=== PATIENT | male | born 2000 | race Hispanic/Latino ===

== ENCOUNTER 2019-02-06 02:54 | Emergency (ER) | payer OTHER ==
[2019-02-06 03:34] VITALS: BMI 21.2
[2019-02-06] MEDS ORDERED: Oxycodone/Acetaminophen 5/325 mg Tab PO STA (04:21)
[2019-02-06] MEDS ORDERED: Tmp-Smz 800 mg-160 mg DS Tab PO STA (04:21)
--- NOTE | 2019-02-06 04:28 | ED PDOC ---
Upper Extremity Pain/Injury Time Seen by Provider: 02/06/19 04:15 Chief Complaint (Nursing): Finger,Hand,&Wrist Chief Complaint (Provider): Finger,Hand,&Wrist History Per: Patient History/Exam Limitations: no limitations Onset/Duration Of Symptoms: Days (x 4) Current Symptoms Are (Timing): Still Present Quality: "Pain" Severity: Moderate Exacerbating Factor(s): Movement Additional Complaint(s): 18 year old male with worsening pain to the right index finger for four days. Initially, he noticed what appeared to be an insect bite to the anterior fat pad of index finger. Over the next few days it continued to swell with redness and pain. Patient was seen at the urgent care yesterday and given Amoxicillin. Pain is now so severe that he cannot sleep. Offers no other complaints. PMD: none provided Past Medical History Reviewed: Historical Data, Nursing Documentation, Vital Signs Vital Signs: Last Vital Signs Temp 98.3 F 02/06/19 03:33 Pulse 60 02/06/19 03:33 Resp 18 02/06/19 03:33 BP 123/71 02/06/19 03:33 Pulse Ox 98 02/06/19 03:33 - Medical History PMH: No Chronic Diseases - Surgical History Surgical History: No Surg Hx - Family History Family History: States: Unknown Family Hx - Home Medications Home Medications: Ambulatory Orders Medication Instructions Recorded Ibuprofen [Motrin] 600 mg PO Q6H PRN #30 tab 02/06/19 Sulfamethoxazole/Trimethoprim 1 each PO BID #20 tablet 02/06/19 [Bactrim Ds Tablet] - Allergies Allergies/Adverse Reactions: Allergies Allergy/AdvReac Type Severity Reaction Status Date / Time No Known Allergies Allergy Verified 02/06/19 03:33 Review of Systems ROS Statement: Except As Marked, All Systems Reviewed And Found Negative Musculoskeletal: Positive for: Other (swelling and redness to distal index figner) Physical Exam - Reviewed Nursing Documentation Reviewed: Yes Vital Signs Reviewed: Yes - Physical Exam Appears: Positive for: No Acute Distress Head Exam: Positive for: ATRAUMATIC, NORMAL INSPECTION, NORMOCEPHALIC Skin: Positive for: Normal Color, Warm, Dry Eye Exam: Positive for: EOMI, Normal appearance, PERRL Cardiovascular/Chest: Positive for: Regular Rate, Rhythm. Negative for: Murmur Respiratory: Positive for: Normal Breath Sounds. Negative for: Respiratory Distress Extremity: Positive for: Normal ROM (full ROM of all digits), Swelling (swelling to the distal tip over anterior first digit). Negative for: Other (erythema, induration, fluctuance or streaking) Neurological/Psych: Positive for: Awake, Alert, Normal Tone, Oriented (x 3). Negative for: Motor/Sensory Deficits - ECG O2 Sat by Pulse Oximetry: 98 (RA) Pulse Ox Interpretation: Normal Medical Decision Making Medical Decision Makin:18 MDM: swelling and pain to the distal index finger; most likely cellulitis Vaccinations are up to date, no Tetanus needed. First dose of Bactrim, Percocet for pain. X-ray of finger. 04:55 No foreign body or other abnormality seen on x-ray Patient will be discharged on Bactrim and Motrin for pain. Scribe Attestation: Documented by Mari Apodaca, acting as a scribe Sravan Jaeger MD Provider Scribe Attestation: All medical record entries made by the Scribe were at my direction and personally dictated by me. I have reviewed the chart and agree that the record accurately reflects my personal performance of the history, physical exam, medical decision making, and the department course for this patient. I have also personally directed, reviewed, and agree with the discharge instructions and disposition. Disposition - Clinical Impression Clinical Impression: Cellulitis and abscess of finger, unspecified, Insect bite - Patient ED Disposition Is Patient to be Admitted: No - Disposition Disposition: Routine/Home Disposition Time: :55 Condition: IMPROVED Additional Instructions: Follow up with primary medical doctor in 2 to 4 days. Take antibiotics as prescribed. Return to the emergency department if swelling, pain, redness worsen or if other new symptoms develop. Prescriptions: Sulfamethoxazole/Trimethoprim [Bactrim Ds Tablet] 1 each PO BID #20 tablet Instructions: Insect Bites and Stings (DC), Cellulitis (Skin Infection), Adult (DC) Forms: [facility] (Tajik), [facility] ED School/Work Excuse Print Language: NIGERIAN
[2019-02-06] MEDS ORDERED: Tmp-Smz 800 mg-160 mg DS Tab ONE (04:42)
[2019-02-06 05:04] VITALS: BP 121/71; PULSE 67; RESP 16; TEMP 98.5
--- NOTE | 2019-02-06 11:44 | RAD ---
Date of service: 02/06/2019 PROCEDURE: Right Index finger radiographs. HISTORY: right hand swelling, poss infection COMPARISON: None. TECHNIQUE: AP radiograph of the right hand, as well as spot oblique and lateral images of index finger were obtained. 3 views obtained. FINDINGS: RIGHT INDEX FINGER: Normal right index finger, without fracture or focal lesion. Remainder of the right hand (as seen on the AP view) grossly intact. A tiny sesamoid bone hamm aspect 2nd DIP joint. Apparent benign-appearing bone island over 4th proximal middle phalanx JOINTS: Normal. SOFT TISSUES: Normal. OTHER FINDINGS: None. IMPRESSION: No fracture or dislocation or lytic lesion or radiopaque foreign body noted. No subcutaneous gaseous emphysema noted. No periosteal reaction seen
[2019-02-10 19:28] VITALS: O2SAT 98
== END 2019-02-06 05:04 | disposition home or self-care (01) ==
LOC: H.ER 02:54
DX: L03.011 Cellulitis of right finger (principal)

== ENCOUNTER 2019-02-06 10:27 | Emergency (ER) | payer OTHER ==
[2019-02-06 10:34] VITALS: BP 119/75; RESP 16; O2SAT 96; BMI 21.8
--- NOTE | 2019-02-06 12:22 | ED PDOC ---
Upper Extremity Pain/Injury Time Seen by Provider: 02/06/19 12:10 Chief Complaint (Nursing): Finger,Hand,&Wrist Chief Complaint (Provider): finger pain History Per: Patient History/Exam Limitations: no limitations Onset/Duration Of Symptoms: Days Current Symptoms Are (Timing): Still Present Quality: Pressure, "Pain" Severity: Moderate Pain Scale Rating Of: 7 Exacerbating Factor(s): Movement Additional History Per: Patient Additional Complaint(s): 18 y/o male with no medical hx presents to the ED with pain and swelling to the tip of the right index finger since Monday. Pt reports he thinks it might be from a "spider" pt reports he saw and "white" spot to finger tip on monday and monday area was 'black dot" pt was seen last night in the ed for same and given one dose of Bactrim, sent home with prescription to continue with bactrim at home. He states this am the pain was severe and was seen in the urgent care today where finger was I'D and instructed to follow up if symptoms worsened which prompted pt to come to ed after urgent care visit. pt has not take meds for pain management, last dose of bactrim was at 3am. Pt denies fever, increase redness or swelling to finger. Past Medical History Vital Signs: Last Vital Signs Temp 97.6 F 02/06/19 10:33 Pulse 66 02/06/19 10:33 Resp 16 02/06/19 10:33 BP 119/75 02/06/19 10:33 Pulse Ox 96 02/06/19 10:33 TRISTAN Report Viewed: No - Medical History PMH: No Chronic Diseases Denies: Chronic Kidney Disease - Surgical History Surgical History: No Surg Hx - Family History Family History: States: Unknown Family Hx - Living Arrangements Living Arrangements: With Family - Social History Alcohol: None Drugs: Denies - Home Medications Home Medications: Ambulatory Orders Medication Instructions Recorded Ibuprofen [Motrin] 600 mg PO Q6H PRN #30 tab 02/06/19 Sulfamethoxazole/Trimethoprim 1 each PO BID #20 tablet 02/06/19 [Bactrim Ds Tablet] - Allergies Allergies/Adverse Reactions: Allergies Allergy/AdvReac Type Severity Reaction Status Date / Time No Known Allergies Allergy Verified 02/06/19 03:33 Review of Systems ROS Statement: Except As Marked, All Systems Reviewed And Found Negative (right 2nd finger, finger tip pad) Constitutional: Negative for: Fever, Chills, Sweats, Weakness, Malaise Eyes: Negative for: Pain, Vision Change, Conjunctivae Inflammation, Eyelid Inflammation, Redness Cardiovascular: Negative for: Chest Pain, Palpitations Respiratory: Negative for: Cough, Shortness of Breath, SOB with Exertion, Wheezing Gastrointestinal: Negative for: Nausea, Vomiting, Abdominal Pain, Diarrhea Musculoskeletal: Positive for: Hand Pain Neurological: Negative for: Weakness, Confusion, Dizziness Physical Exam - Reviewed Nursing Documentation Reviewed: Yes Vital Signs Reviewed: Yes - Physical Exam Appears: Positive for: Well, Non-toxic, No Acute Distress Head Exam: Positive for: ATRAUMATIC, NORMAL INSPECTION, NORMOCEPHALIC Skin: Positive for: Normal Color, Warm, DRY Eye Exam: Positive for: EOMI, Normal appearance, PERRL ENT: Positive for: Normal ENT Inspection Neck: Positive for: Normal, Painless ROM Cardiovascular/Chest: Positive for: Regular Rate, Rhythm Respiratory: Positive for: CNT, Normal Breath Sounds Gastrointestinal/Abdominal: Positive for: Normal Exam, Soft Back: Positive for: Normal Inspection Extremity: Positive for: Tenderness (right second digit redness, swelling and pain between finger tip pad and DIP. nail bed normal, neg for paronychia. neg for sign of necrosis. extensor tendon function is intact.), Capillary Refill (<2 secs refill ), Swelling (finger tip pad ) Neurological/Psych: Positive for: Awake, Alert, Normal Tone, Oriented - ECG O2 Sat by Pulse Oximetry: 96 - Progress ED Course And Treament: Motrin 600mg PO x1 Right hand examined in its entirety. Noted finger has betadine from I'D. Patient given motrin 600mg PO. Pt instructed to fill prescription for Bactrim and take another dose as scheduled. Educated on non-pharmacological therapies such as warm water soaks and maintain elevated while resting, to keep finger clean. Impression: Nell ferreira, rx given for motrin 600mg PO as needed for pain. advised pt to return to ED in 2 days for wound check. Pt verbalize understanding instructions. pt stable for D/C home, pt agrees with plan. Disposition - Clinical Impression Clinical Impression: Cellulitis and abscess of finger, unspecified, [place] - Patient ED Disposition Is Patient to be Admitted: No Counseled Patient/Family Regarding: Diagnosis, Rx Given - Disposition Disposition: Routine/Home Disposition Time: 12:16 Condition: STABLE Prescriptions: Ibuprofen [Motrin] 600 mg PO Q6H PRN #30 tab PRN Reason: Pain, Moderate (4-7) Instructions: Cellulitis (Skin Infection), Adult (DC) Print Language: PERUVIAN - POA Present On Arrival: None
[2019-02-06 12:32] VITALS: PULSE 65; TEMP 98.6
== END 2019-02-06 12:25 | disposition home or self-care (01) ==
LOC: H.ER 10:27
DX: L02.511 Cutaneous abscess of right hand (principal)